=== PATIENT | male | born 1955 | race Caucasian/White ===

== ENCOUNTER → 2016-11-20 | Outpatient (CLI) | payer BC ==
[~2016-11-20] MED LIST: ASPIRIN 81MG TA81 MG PO; CLARITIN 10MG T10 MG PO; CRESTOR10 MG PO
--- NOTE | 2016-11-20 12:42 | RADIOLOGY REPORT PS360 ---
US ABD(COMPLETE-MULTI ORGANS HISTORY: LUQ PAIN ORDERING PHYSICIAN: Annabella Montenegro MD PATIENT AGE: 61 years COMPARISON: None FINDINGS: PANCREAS:Unremarkable. No obvious mass or abnormal fluid collection. No ductal dilatation LIVER:There is a 17 mm cyst in central aspect of the liver as before. No additional liver lesions evident. No biliary dilatation. RIGHT KIDNEY:Unremarkable. Normal size and echogenicity. No hydronephrosis LEFT KIDNEY:Normal size at 9 x 4 x 5 cm. No hydronephrosis. There may be a small stone in the lower pole of the left kidney. GALLBLADDER:Status post cholecystectomy. Common bile duct is normal at 4 mm AORTA:Not imaged SPLEEN:Unremarkable. Normal size and echogenicity ASCITES:None demonstrated. IMPRESSION: 1. Prior cholecystectomy. No biliary dilatation 2. Small hepatic cyst. 3. Possible left nephrolithiasis
== END ==
LOC: RAD 08:50
DX: R10.12 Left upper quadrant pain (principal)

== ENCOUNTER → 2017-04-12 | Outpatient (CLI) | payer BC ==
--- NOTE | 2017-04-12 12:10 | RADIOLOGY REPORT PS360 ---
US SPLEEN (ABD LTD) CLINICAL INDICATION: LEFT UPPER QUAD PAIN ORDERING PHYSICIAN: Annabella Montenegro MD PATIENT AGE: 62 years COMPARISON: None FINDINGS: The spleen demonstrates homogeneous echogenicity without evidence of enlargement or mass. No perisplenic fluid collections are evident. The spleen measures approximately 10 cm in length. Images are obtained of the left kidney showing no evidence of hydronephrosis. There are 2 small cysts along the lower pole the left kidney near 1 cm. IMPRESSION: Unremarkable splenic ultrasound. Small left renal cyst otherwise negative left upper quadrant ultrasound
== END ==
LOC: RAD 08:36
DX: R10.12 Left upper quadrant pain (principal)